=== PATIENT | female | born 1985 | race Caucasian/White ===

== ENCOUNTER → 2016-11-04 | Outpatient (CLI) | payer OTHER ==
[2016-09-24 12:31] VITALS: BP 116/77
== END | disposition home or self-care (01) ==
LOC: LAB 07:51
PROVIDERS: ATTEND Obstetrics & Gynecology
DX: O09.90 Supervision of high risk pregnancy, unspecified, unspecified trimester (principal)
CPT/HCPCS: 36415; 82947; 82950

== ENCOUNTER → 2016-12-19 | Outpatient (CLI) | payer OTHER ==
[2016-09-24 12:31] VITALS: BP 116/77
[2016-12-19 10:21] LABS: BASO # 0.1 x10^3/uL (0.0-0.2); BASO % 1 % (0-3); EOS % 1 % (0-3); HEMOGLOBIN 11.4 g/dL (12.0-15.5); LYMPH # 1.8 x10^3/uL (1.0-4.8); LYMPH % 13 % (24-48); MEAN CORPUSCULAR HEMOGLOBIN 28 pg (25-35); MEAN CORPUSCULAR HGB CONC 33 g/dL (31-37); MEAN CORPUSCULAR VOLUME 86 fL (79-100); MONO % 6 % (0-9); NEUT % 81 % (31-73); PLATELET COUNT 260 x10^3/uL (140-400); RED BLOOD COUNT 4.09 x10^6/uL (3.50-5.40); RED CELL DISTRIBUTION WIDTH 13.6 % (11.5-14.5); WHITE BLOOD COUNT 14.1 x10^3/uL (4.0-11.0)
[2016-12-19 10:44] LABS: ALBUMIN 2.7 g/dL (3.4-5.0); ALBUMIN/GLOBULIN RATIO 0.7 (1.0-1.7); CALCIUM 8.9 mg/dL (8.5-10.1); CREATININE 0.7 mg/dL (0.6-1.0); GFR 97.6; POTASSIUM 4.1 mmol/L (3.5-5.1); TOTAL BILIRUBIN 0.3 mg/dL (0.2-1.0); TOTAL PROTEIN 6.5 g/dL (6.4-8.2)
== END | disposition home or self-care (01) ==
LOC: LAB 10:03
PROVIDERS: ATTEND Obstetrics & Gynecology
DX: O09.90 Supervision of high risk pregnancy, unspecified, unspecified trimester (principal)
CPT/HCPCS: 36415; 80053; 85027

== ENCOUNTER 2016-12-29 19:44 | Inpatient (IN) | payer OTHER ==
[~2016-12-29] VITALS: Ht 162.6 cm; Wt 86.4 kg
[2016-12-29] MEDS ORDERED: IV RINGERS,LACTATED 1000ML 1,000 ML IV SCH (19:48)
[2016-12-29] MEDS ORDERED: IBUPROFEN 600 MG TABLET. PO PRN (20:00)
[2016-12-29] MEDS ORDERED: OXYTOCIN 30 UNIT/500 ML PREMIX 500 ML IV PRN (20:00)
[2016-12-29] MEDS ORDERED: TERBUTALINE 1 MG/ML VIAL. SQ PRN (20:00)
[2016-12-29] MEDS ORDERED: 0.9 % SODIUM CHLORIDE 10 ML DISP.SYRIN. IV PRN (20:00)
[2016-12-29] MEDS ORDERED: BUTORPHANOL 2 MG/ML VIAL. IV PRN (20:00)
[2016-12-29] MEDS ORDERED: DINOPROSTONE 10 MG SUPP.VAG VG ONE (20:00)
[2016-12-29] MEDS ORDERED: LIDOCAINE 1% PF 30 ML VIAL. INJ PRN (20:00)
[2016-12-29] MEDS ORDERED: CITRIC ACID/SODIUM CITRATE 30 ML SOLUTION. PO PRN (20:00)
[2016-12-29] MEDS ORDERED: ONDANSETRON PF 4 MG/2 ML VIAL. IV PRN (20:00)
[2016-12-29 20:33] VITALS: BP 133/74
[2016-12-29 22:22] LABS: BASO # 0.1 x10^3/uL (0.0-0.2); BASO % 1 % (0-3); EOS % 0 % (0-3); HEMATOCRIT 33.9 % (36.0-47.0); HEMOGLOBIN 10.9 g/dL (12.0-15.5); LYMPH # 1.9 x10^3/uL (1.0-4.8); LYMPH % 16 % (24-48); MEAN CORPUSCULAR HEMOGLOBIN 28 pg (25-35); MEAN CORPUSCULAR HGB CONC 32 g/dL (31-37); MEAN CORPUSCULAR VOLUME 86 fL (79-100); MONO % 7 % (0-9); NEUT % 77 % (31-73); PLATELET COUNT 242 x10^3/uL (140-400); RED BLOOD COUNT 3.92 x10^6/uL (3.50-5.40); WHITE BLOOD COUNT 12.4 x10^3/uL (4.0-11.0)
[2016-12-29 23:12] LABS: % EOS 2 % (0-5); PLT ESTIMATE ADEQUATE (ADEQUATE)
[2016-12-30] MEDS: IV RINGERS,LACTATED 1000ML 1,000 ML IV SCH ×3 (07:47→16:03)
--- NOTE | 2016-12-30 10:53 | PDOC1 ---
OB - History Hx of Present Care: Good Care Ultrasounds: Normal mid trimester US Obstetrical Complications: None Medical Complications: None Past Family/Social History * Past Medical, Surgical, Family and Obstetric Histories reviewed from chart. Rubella: Immune RPR/VDRL: Negative GBS Status: Negative HBsAG: Negative OB - Chief Complaint & HPI Date of Admission: Date of Admission: Dec 29, 2016 at 19:44 Chief Complaint/History : 1 Para: 0 EGA: 39 Reason for admission: induction of labor Indication for induction: maternal discomfort Admission Nurse Assessment Rev: Yes Problems: OB - Admission Exam Physical Exam Vitals: VS - Last 72 Hours, by Label Date Time Temp Pulse Resp B/P Pulse Ox O2 Delivery O2 Flow Rate FiO2 12/30/16 02:18 20 Room Air 12/29/16 20:33 98.3 111 20 133/74 Room Air 98.3 HEENT: Normal Heart: Regular Rate Lungs: Clear Abdomen: Soft Extremities: Edema Reflexes: Normal Cervical Dilatation: Fingertip Effacement: 25% Station: -3 Membranes: Intact Heart Rate: Normal Accelerations: Accelerations Present Contractions on Admission: None Intensity: Mild Text A: 39 wks IUP IOL secondary discomforts of P: Admit for cervidil induction, then pitocin augmentation. ANNITA NAVA Jr, MD Dec 30, 2016 10:53
[2016-12-30] MEDS ORDERED: ROPIVacaine 0.2% IN 0.9%NACL PF 40 MG/20 ML DISP.SYRIN. ONE ×3 (11:54→17:58)
[2016-12-30] MEDS ORDERED: L&D EPIDURAL CASSETTE 100 ML EP ONE (11:54)
[2016-12-30] MEDS ORDERED: EPHEDRINE PF IN SALINE 50 MG/5 ML DISP.SYRIN. IV PRN (13:00)
[2016-12-30] MEDS ORDERED: FENTANYL PF 100 MCG/2 ML VIAL. EPI ONE (13:00)
[2016-12-30] MEDS ORDERED: ROPIVacaine 0.2% PF 10 ML VIAL. EPI ONE (13:00)
[2016-12-30] MEDS ORDERED: ONDANSETRON PF 4 MG/2 ML VIAL. IV PRN (13:00)
[2016-12-30] MEDS ORDERED: L&D EPIDURAL CASSETTE 100 ML EP PRN (13:00)
[2016-12-30] MEDS ORDERED: NALOXONE 0.4 MG/ML VIAL. IV PRN (13:00)
[2016-12-30] MEDS ORDERED: FAMOTIDINE 20 MG TABLET. PO ONE (16:15)
[2016-12-30] MEDS ORDERED: L&D EPIDURAL CASSETTE 100 ML PUMP.RESVR. EP ONE (19:20)
--- NOTE | 2016-12-30 21:40 | PDOC ---
VAGINAL DELIVERY DATE DATE: 12/30/16 TIME: 21:38 : 1 Para: 1 EGA: 39 VAGINAL DELIVERY: VTX VACCUM ASSISTED: Yes NUMBER OF PULLS 3 NUMBER OF POP OFFS none MAXIMUM PRESSURE 600 mmhg PLACENTA: Spontaneous 12/11 SEX: Male WEIGHT Weight [ 3755 gm] Nuchal Cord: Yes, Times 1 Amniotic Fluid: Clear PAIN: Epidural EPISIOTOMY: No EXTENSION: Yes (2nd degree midline laceration) REPAIRED WITH 2-0 vicryl EBL 300 ml COMPLICATIONS none CONDITION pt. stable Signs of Intrauterine Infectio: None Shoulder Dystocia: No, Raulito Maneuver, Suprapubic Pressure Problems: ANNITA NAVA Jr, MD Dec 30, 2016 21:40
[2016-12-30] MEDS ORDERED: MAG HYDROX/ALUMINUM HYD/SIMETH 30 ML ORAL.SUSP PO PRN (21:45)
[2016-12-30] MEDS ORDERED: SIMETHICONE 80 MG TAB.CHEW PO PRN (21:45)
[2016-12-30] MEDS ORDERED: OXYTOCIN 30 UNIT/500 ML PREMIX 500 ML IV PRN (21:45)
[2016-12-30] MEDS ORDERED: BENZOCAINE 20% TOPICAL AEROSOL SPRAY 57GM CAN. TP PRN (21:45)
[2016-12-30] MEDS ORDERED: HYDROCORTISONE 1% TOPICAL OINTMENT 30GM TUBE. TP PRN (21:45)
[2016-12-30] MEDS ORDERED: DIPHENHYDRAMINE HCL 25 MG CAPSULE PO PRN (21:45)
[2016-12-30] MEDS ORDERED: DOCUSATE SODIUM 100 MG CAPSULE. PO PRN (21:45)
[2016-12-30] MEDS ORDERED: OXYCODONE/APAP 5/325 TABLET. PO PRN (21:45)
[2016-12-30] MEDS ORDERED: 0.9 % SODIUM CHLORIDE 10 ML DISP.SYRIN. IV PRN (21:45)
[2016-12-30] MEDS ORDERED: ACETAMINOPHEN 325 MG TABLET. PO PRN (21:45)
[2016-12-30] MEDS ORDERED: MMR per PROTOCOL. MC PRN (21:45)
[2016-12-30] MEDS ORDERED: ZOLPIDEM 5 MG TABLET. PO PRN (21:45)
[2016-12-30] MEDS ORDERED: PHENYLEPH/MINERAL OIL/PETROLAT RECTAL OINTMENT 28GM TUBE. RC PRN (21:45)
[2016-12-30] MEDS ORDERED: MAGNESIUM HYDROXIDE 2,400 MG/30 ML ORAL.SUSP. PO PRN (21:45)
[2016-12-31 00:20] VITALS: BP 121/80
[2016-12-31 01:29] VITALS: BP 95/40
[2016-12-31 05:07] VITALS: BP 99/69
[2016-12-31 05:14] LABS: BASO % 0 % (0-3); EOS % 0 % (0-3); HEMATOCRIT 28.9 % (36.0-47.0); HEMOGLOBIN 9.3 g/dL (12.0-15.5); LYMPH # 1.2 x10^3/uL (1.0-4.8); LYMPH % 5 % (24-48); MEAN CORPUSCULAR HEMOGLOBIN 28 pg (25-35); MEAN CORPUSCULAR HGB CONC 32 g/dL (31-37); MEAN CORPUSCULAR VOLUME 87 fL (79-100); MONO % 7 % (0-9); NEUT % 88 % (31-73); PLATELET COUNT 206 x10^3/uL (140-400); RED BLOOD COUNT 3.34 x10^6/uL (3.50-5.40); RED CELL DISTRIBUTION WIDTH 13.7 % (11.5-14.5); WHITE BLOOD COUNT 22.3 x10^3/uL (4.0-11.0)
[2016-12-31 05:55] LABS: PLT ESTIMATE ADEQUATE (ADEQUATE)
[2016-12-31] MEDS ORDERED: OXYTOCIN 30 UNIT/500 ML PREMIX 500 ML IV PRN ×2 (06:00→08:00)
[2016-12-31] MEDS ORDERED: FERROUS SULFATE ORAL 300 MG/5 ML SOLUTION. PO SCH (08:00)
[2016-12-31] MEDS: FERROUS SULFATE 325 MG TABLET PO SCH ×2 (08:27→21:05)
--- NOTE | 2016-12-31 08:59 | PDOC ---
OB Progress Note Date of Service 12/31/16 Time of Evaluation 0855 Notes PT. feeling well. Pain controlled. Breast feeding without difficulty. Lochia minimal. Lab Laboratory Tests Test 12/29/16 21:20 12/31/16 04:45 White Blood Count 12.4x10^3/uL (4.0-11.0) 22.3x10^3/uL (4.0-11.0) Red Blood Count 3.92x10^6/uL (3.50-5.40) 3.34x10^6/uL (3.50-5.40) Hemoglobin 10.9g/dL (12.0-15.5) 9.3g/dL (12.0-15.5) Hematocrit 33.9% (36.0-47.0) 28.9% (36.0-47.0) Mean Corpuscular Volume 86fL (79-100) 87fL (79-100) Mean Corpuscular Hemoglobin 28pg (25-35) 28pg (25-35) Mean Corpuscular Hemoglobin Concent 32g/dL (31-37) 32g/dL (31-37) Red Cell Distribution Width 14.0% (11.5-14.5) 13.7% (11.5-14.5) Platelet Count 242x10^3/uL (140-400) 206x10^3/uL (140-400) Neutrophils (%) (Auto) 77% (31-73) 88% (31-73) Lymphocytes (%) (Auto) 16% (24-48) 5% (24-48) Monocytes (%) (Auto) 7% (0-9) 7% (0-9) Eosinophils (%) (Auto) 0% (0-3) 0% (0-3) Basophils (%) (Auto) 1% (0-3) 0% (0-3) Neutrophils # (Auto) 9.6x10^3uL (1.8-7.7) 19.6x10^3uL (1.8-7.7) Lymphocytes # (Auto) 1.9x10^3/uL (1.0-4.8) 1.2x10^3/uL (1.0-4.8) Monocytes # (Auto) 0.8x10^3/uL (0.0-1.1) 1.5x10^3/uL (0.0-1.1) Eosinophils # (Auto) 0.0x10^3/uL (0.0-0.7) 0.0x10^3/uL (0.0-0.7) Basophils # (Auto) 0.1x10^3/uL (0.0-0.2) 0.0x10^3/uL (0.0-0.2) Segmented Neutrophils % 82% (35-66) 87% (35-66) Lymphocytes % 12% (24-48) 9% (24-48) Monocytes % 4% (0-10) 3% (0-10) Eosinophils % 2% (0-5) Platelet Estimate Adequate (ADEQUATE) Adequate (ADEQUATE) RPR Titer Additional Testing Non reactive (Non Reactive) Band Neutrophils % 1% (0-9) Laboratory Tests Test 12/31/16 04:45 White Blood Count 22.3x10^3/uL (4.0-11.0) Red Blood Count 3.34x10^6/uL (3.50-5.40) Hemoglobin 9.3g/dL (12.0-15.5) Hematocrit 28.9% (36.0-47.0) Mean Corpuscular Volume 87fL (79-100) Mean Corpuscular Hemoglobin 28pg (25-35) Mean Corpuscular Hemoglobin Concent 32g/dL (31-37) Red Cell Distribution Width 13.7% (11.5-14.5) Platelet Count 206x10^3/uL (140-400) Neutrophils (%) (Auto) 88% (31-73) Lymphocytes (%) (Auto) 5% (24-48) Monocytes (%) (Auto) 7% (0-9) Eosinophils (%) (Auto) 0% (0-3) Basophils (%) (Auto) 0% (0-3) Neutrophils # (Auto) 19.6x10^3uL (1.8-7.7) Lymphocytes # (Auto) 1.2x10^3/uL (1.0-4.8) Monocytes # (Auto) 1.5x10^3/uL (0.0-1.1) Eosinophils # (Auto) 0.0x10^3/uL (0.0-0.7) Basophils # (Auto) 0.0x10^3/uL (0.0-0.2) Segmented Neutrophils % 87% (35-66) Band Neutrophils % 1% (0-9) Lymphocytes % 9% (24-48) Monocytes % 3% (0-10) Platelet Estimate Adequate (ADEQUATE) Medications Current Medications Sodium Chloride 3 ml 3 ml QSHIFT PRN IV AFTER MEDS AND BLOOD DRAWS Last administered on 12/29/16 21:04; Start 12/29/16 at 20:00 Lactated Ringer's (Iv Lactated Ringers) 1,000 ml @ 125 mls/hr Q8H IV ; Start at 19:48; Stop 12/30/16 at 01:02; Status DC Butorphanol Tartrate (Stadol) 2 mg PRN Q1HR PRN IV Severe labor pain Last administered on 12/30/16 02:18; Start 12/29/16 at 20:00 Ondansetron HCl (Zofran) 4 mg PRN Q4HRS PRN IV NAUSEA/VOMITING; Start 12/29/16 at 20:00 Citric Acid/ Sodium Citrate (Bicitra) 30 ml 1X PRN PRN PO DYSPEPSIA; Start at 20:00; Stop 12/30/16 at 19:59; Status DC Terbutaline Sulfate (Brethine) 0.25 mg 1X PRN PRN SQ SEE COMMENTS; Start at 20:00; Stop 12/30/16 at 19:59; Status DC Lidocaine HCl 30 ml 30 ml 1X PRN PRN INJ SEE COMMENTS; Start 12/29/16 at 20:00 ; Stop 12/31/16 at 19:59 Oxytocin/Sodium Chloride 500 ml @ 0 mls/hr CONT PRN IV SEE I/O RECORD; Start at 06:00; Stop 12/31/16 at 06:00; Status DC Oxytocin/Sodium Chloride (Oxytocin Premix Infusion) 500 ml @ 0 mls/hr CONT PRN PRN IV Post delivery bleeding; Start 12/29/16 at 20:00 Ibuprofen (Motrin) 600 mg PRN Q6HRS PRN PO PAIN; Start 12/29/16 at 20:00 Dinoprostone 10 mg 10 mg 1X ONCE VG Last administered on 12/29/16 21:03; Start 12/29/16 at 20:00; Stop 12/29/16 at 20:10; Status DC Oxytocin/Sodium Chloride 500 ml @ 0 mls/hr CONT PRN IV SEE I/O RECORD Last administered on 12/30/16 11:00; Start 12/31/16 at 08:00 Lactated Ringer's 1,000 ml @ 125 mls/hr Q8H IV Last administered on 12/30/16 16:03; Start 12/30/16 at 08:00 Ropivacaine/ Fentanyl/NS (Aewrtqxa-Zsswi-HA 3 Mcg-0.1%) 100 ml @ As Directed STK-MED ONCE EP ; Start 12/30/16 at 11:54; Stop 12/30/16 at 11:55; Status DC Ropivacaine 40 mg STK-MED ONCE .ROUTE Last administered on 12/30/16 13:19; Start 12/30/16 at 11:54; Stop 12/30/16 at 11:55; Status DC Ephedrine Sulfate 10 mg PRN Q2MIN PRN IV IF SBP<90; Start 12/30/16 at 13:00 Naloxone HCl (Narcan) 0.04 mg PRN Q1MIN PRN IV SEE COMMENTS; Start 12/30/16 at 13:00 Fentanyl Citrate 100 mcg 100 mcg 1X ONCE EPI Last administered on 12/30/16 13 :20; Start 12/30/16 at 13:00; Stop 12/30/16 at 13:01; Status DC Ropivacaine/ Fentanyl/NS (Opvjzgjg-Vbfri-CS 3 Mcg-0.1%) 100 ml @ 14 mls/hr CONT PRN EP PAIN Last administered on 12/30/16 13:21; Start 12/30/16 at 13:00 Ondansetron HCl (Zofran) 4 mg PRN Q6HRS PRN IV NAUSEA/VOMITING; Start 12/30/16 at 13:00 Ropivacaine (Naropin 0.2%) 20 ml 1X ONCE EPI ; Start 12/30/16 at 13:00; Stop at 13:01; Status DC Ropivacaine 40 mg STK-MED ONCE .ROUTE ; Start 12/30/16 at 13:18; Stop 12/30/16 at 13:19; Status DC Famotidine (Pepcid) 20 mg 1X ONCE PO Last administered on 12/30/16 15:59; Start 12/30/16 at 16:15; Stop 12/30/16 at 16:16; Status DC Ropivacaine 40 mg STK-MED ONCE .ROUTE Last administered on 12/30/16 18:05; Start 12/30/16 at 17:58; Stop 12/30/16 at 17:59; Status DC Sodium Chloride 10 ml 10 ml QSHIFT PRN IV AFTER MEDS AND BLOOD DRAWS; Start at 21:45 Oxytocin/Sodium Chloride (Oxytocin Premix Infusion) 500 ml @ 62.5 mls/hr CONT PRN IV SEE I/O RECORD; Start 12/30/16 at 21:45; Stop 12/31/16 at 05:44; Status DC Acetaminophen (Tylenol) 650 mg PRN Q6HRS PRN PO MILD PAIN / TEMP Last administered on 12/31/16 08:27; Start 12/30/16 at 21:45 Ibuprofen (Motrin) 800 mg PRN Q8HRS PRN PO INFLAMMATION/PAIN PREVENTION; Start 12/30/16 at 21:45 Docusate Sodium (Colace) 100 mg PRN BID PRN PO CONSTIPATION; Start 12/30/16 at 21:45 Magnesium Hydroxide (Milk Of Magnesia) 2,400 mg PRN DAILY PRN PO CONSTIPATION; Start 12/30/16 at 21:45 Al Hydroxide/Mg Hydroxide (Mylanta Plus Xs) 30 ml PRN Q4HRS PRN PO HEARTBURN / GAS; Start 12/30/16 at 21:45 Simethicone (Gas-X) 80 mg PRN AFTMEALHC PRN PO GAS / BLOATING; Start 12/30/16 at 21:45 Diphenhydramine HCl (Benadryl) 25 mg PRN Q6HRS PRN PO ITCHING; Start 12/30/16 at 21:45 Benzocaine (Americaine) 1 spray PRN QID PRN TP TOPICAL PAIN; Start 12/30/16 at 21:45 Phenyleph/Shark Oil/Min Oil/Petrol (Preparation H) 1 octavia PRN QID PRN RC RECTAL PAIN; Start 12/30/16 at 21:45 Hydrocortisone (Cortaid) 1 octavia PRN QID PRN TP PERINEAL PAIN; Start 12/30/16 at 21:45 Ferrous Sulfate (Feosol) 325 mg BIDWMEALS PO Last administered on 12/31/16t 08: 27; Start 12/31/16 at 08:00 Zolpidem Tartrate (Ambien) 5 mg PRN QHS PRN PO INSOMNIA, MAY REPEAT X1; Start 12/30/16 at 21:45 Info (Do NOT chart on this placeholder) 1 ea 1X PRN PRN MC SEE COMMENTS; Start 12/30/16 at 21:45 Info (Do NOT chart on this placeholder) 1 ea 1X PRN PRN MC SEE COMMENTS; Start 12/30/16 at 21:45 Oxycodone/ Acetaminophen (Percocet 5/325) 2 tab PRN Q4HRS PRN PO MODERATE PAIN , SEVERE PAIN; Start 12/30/16 at 21:45 Ferrous Sulfate 300 mg BIDWMEALS PO ; Start 12/31/16 at 08:00 Ropivacaine/ Fentanyl/NS (Cvhgjpuq-Rulwz-IC 3 Mcg-0.1%) 100 ml STK-MED ONCE EP ; Start 12/30/16 at 19:20; Stop 12/31/16 at 08:34; Status DC Exam Abd: soft, non tender, fundus firm Assessment PPD#1 s/p Plan of Care: Continue current Tx, ANNITA Gibson Jr, MD Dec 31, 2016 08:59
[2016-12-31 12:15] VITALS: BP 118/82
[2016-12-31 17:10] VITALS: BP 91/53
[2016-12-31 20:50] VITALS: BP 116/82
[2016-12-31] MEDS: IBUPROFEN 800 MG TABLET. PO PRN (21:05)
[2017-01-01 05:00] VITALS: BP 83/48
[2017-01-01] MEDS: FERROUS SULFATE 325 MG TABLET PO SCH (08:06)
[2017-01-01] MEDS: IBUPROFEN 800 MG TABLET. PO PRN (08:06)
[2017-01-01 11:12] VITALS: BP 128/79
--- NOTE | 2017-01-01 13:37 | PDOC ---
OB Progress Note Date of Service 01/01/17 Time of Evaluation 1330 Notes Pt. feeling well. No complaints. Lab Laboratory Tests Test 12/31/16 04:45 White Blood Count 22.3x10^3/uL (4.0-11.0) Red Blood Count 3.34x10^6/uL (3.50-5.40) Hemoglobin 9.3g/dL (12.0-15.5) Hematocrit 28.9% (36.0-47.0) Mean Corpuscular Volume 87fL (79-100) Mean Corpuscular Hemoglobin 28pg (25-35) Mean Corpuscular Hemoglobin Concent 32g/dL (31-37) Red Cell Distribution Width 13.7% (11.5-14.5) Platelet Count 206x10^3/uL (140-400) Neutrophils (%) (Auto) 88% (31-73) Lymphocytes (%) (Auto) 5% (24-48) Monocytes (%) (Auto) 7% (0-9) Eosinophils (%) (Auto) 0% (0-3) Basophils (%) (Auto) 0% (0-3) Neutrophils # (Auto) 19.6x10^3uL (1.8-7.7) Lymphocytes # (Auto) 1.2x10^3/uL (1.0-4.8) Monocytes # (Auto) 1.5x10^3/uL (0.0-1.1) Eosinophils # (Auto) 0.0x10^3/uL (0.0-0.7) Basophils # (Auto) 0.0x10^3/uL (0.0-0.2) Segmented Neutrophils % 87% (35-66) Band Neutrophils % 1% (0-9) Lymphocytes % 9% (24-48) Monocytes % 3% (0-10) Platelet Estimate Adequate (ADEQUATE) Medications Current Medications Sodium Chloride 3 ml 3 ml QSHIFT PRN IV AFTER MEDS AND BLOOD DRAWS Last administered on 12/29/16t 21:04; Start 12/29/16 at 20:00; Stop 12/31/16 at 20:12 ; Status DC Lactated Ringer's (Iv Lactated Ringers) 1,000 ml @ 125 mls/hr Q8H IV ; Start at 19:48; Stop 12/30/16 at 01:02; Status DC Butorphanol Tartrate (Stadol) 2 mg PRN Q1HR PRN IV Severe labor pain Last administered on 12/30/16 02:18; Start 12/29/16 at 20:00; Stop 12/31/16 at 20:11 ; Status DC Ondansetron HCl (Zofran) 4 mg PRN Q4HRS PRN IV NAUSEA/VOMITING; Start 12/29/16 at 20:00; Stop 12/31/16 at 20:11; Status DC Citric Acid/ Sodium Citrate (Bicitra) 30 ml 1X PRN PRN PO DYSPEPSIA; Start at 20:00; Stop 12/30/16 at 19:59; Status DC Terbutaline Sulfate (Brethine) 0.25 mg 1X PRN PRN SQ SEE COMMENTS; Start at 20:00; Stop 12/30/16 at 19:59; Status DC Lidocaine HCl 30 ml 30 ml 1X PRN PRN INJ SEE COMMENTS; Start 12/29/16 at 20:00 ; Stop 12/31/16 at 19:59; Status DC Oxytocin/Sodium Chloride 500 ml @ 0 mls/hr CONT PRN IV SEE I/O RECORD; Start at 06:00; Stop 12/31/16 at 06:00; Status DC Oxytocin/Sodium Chloride (Oxytocin Premix Infusion) 500 ml @ 0 mls/hr CONT PRN PRN IV Post delivery bleeding; Start 12/29/16 at 20:00; Stop 12/31/16 at 20:11; Status DC Ibuprofen (Motrin) 600 mg PRN Q6HRS PRN PO PAIN; Start 12/29/16 at 20:00; Stop 12/31/16 at 20:11; Status DC Dinoprostone 10 mg 10 mg 1X ONCE VG Last administered on 12/29/16 21:03; Start 12/29/16 at 20:00; Stop 12/29/16 at 20:10; Status DC Oxytocin/Sodium Chloride 500 ml @ 0 mls/hr CONT PRN IV SEE I/O RECORD Last administered on 12/30/16 11:00; Start 12/31/16 at 08:00 Lactated Ringer's 1,000 ml @ 125 mls/hr Q8H IV Last administered on 12/30/16 16:03; Start 12/30/16 at 08:00; Stop 12/31/16 at 20:11; Status DC Ropivacaine/ Fentanyl/NS (Pjhfijdf-Jbfnw-YD 3 Mcg-0.1%) 100 ml @ As Directed STK-MED ONCE EP ; Start 12/30/16 at 11:54; Stop 12/30/16 at 11:55; Status DC Ropivacaine 40 mg STK-MED ONCE .ROUTE Last administered on 12/30/16 13:19; Start 12/30/16 at 11:54; Stop 12/30/16 at 11:55; Status DC Ephedrine Sulfate 10 mg PRN Q2MIN PRN IV IF SBP<90; Start 12/30/16 at 13:00; Stop 12/31/16 at 20:11; Status DC Naloxone HCl (Narcan) 0.04 mg PRN Q1MIN PRN IV SEE COMMENTS; Start 12/30/16 at 13:00; Stop 12/31/16 at 20:11; Status DC Fentanyl Citrate 100 mcg 100 mcg 1X ONCE EPI Last administered on 12/30/16 13 :20; Start 12/30/16 at 13:00; Stop 12/30/16 at 13:01; Status DC Ropivacaine/ Fentanyl/NS (Tiaolgmv-Ghdjm-WI 3 Mcg-0.1%) 100 ml @ 14 mls/hr CONT PRN EP PAIN Last administered on 12/30/16 13:21; Start 12/30/16 at 13:00 ; Stop 12/31/16 at 20:11; Status DC Ondansetron HCl (Zofran) 4 mg PRN Q6HRS PRN IV NAUSEA/VOMITING; Start 12/30/16 at 13:00 Ropivacaine (Naropin 0.2%) 20 ml 1X ONCE EPI ; Start 12/30/16 at 13:00; Stop at 13:01; Status DC Ropivacaine 40 mg STK-MED ONCE .ROUTE ; Start 12/30/16 at 13:18; Stop 12/30/16 at 13:19; Status DC Famotidine (Pepcid) 20 mg 1X ONCE PO Last administered on 12/30/16 15:59; Start 12/30/16 at 16:15; Stop 12/30/16 at 16:16; Status DC Ropivacaine 40 mg STK-MED ONCE .ROUTE Last administered on 12/30/16 18:05; Start 12/30/16 at 17:58; Stop 12/30/16 at 17:59; Status DC Sodium Chloride 10 ml 10 ml QSHIFT PRN IV AFTER MEDS AND BLOOD DRAWS; Start at 21:45 Oxytocin/Sodium Chloride (Oxytocin Premix Infusion) 500 ml @ 62.5 mls/hr CONT PRN IV SEE I/O RECORD; Start 12/30/16 at 21:45; Stop 12/31/16 at 05:44; Status DC Acetaminophen (Tylenol) 650 mg PRN Q6HRS PRN PO MILD PAIN / TEMP Last administered on 12/31/16 08:27; Start 12/30/16 at 21:45 Ibuprofen (Motrin) 800 mg PRN Q8HRS PRN PO INFLAMMATION/PAIN PREVENTION Last administered on 01/01/17 08:06; Start 12/30/16 at 21:45 Docusate Sodium (Colace) 100 mg PRN BID PRN PO CONSTIPATION Last administered on 12/31/16 21:05; Start 12/30/16 at 21:45 Magnesium Hydroxide (Milk Of Magnesia) 2,400 mg PRN DAILY PRN PO CONSTIPATION; Start 12/30/16 at 21:45 Al Hydroxide/Mg Hydroxide (Mylanta Plus Xs) 30 ml PRN Q4HRS PRN PO HEARTBURN / GAS; Start 12/30/16 at 21:45 Simethicone (Gas-X) 80 mg PRN AFTMEALHC PRN PO GAS / BLOATING; Start 12/30/16 at 21:45 Diphenhydramine HCl (Benadryl) 25 mg PRN Q6HRS PRN PO ITCHING; Start 12/30/16 at 21:45 Benzocaine (Americaine) 1 spray PRN QID PRN TP TOPICAL PAIN; Start 12/30/16 at 21:45 Phenyleph/Shark Oil/Min Oil/Petrol (Preparation H) 1 octavia PRN QID PRN RC RECTAL PAIN; Start 12/30/16 at 21:45 Hydrocortisone (Cortaid) 1 octavia PRN QID PRN TP PERINEAL PAIN; Start 12/30/16 at 21:45 Ferrous Sulfate (Feosol) 325 mg BIDWMEALS PO Last administered on 01/01/17t 08: 06; Start 12/31/16 at 08:00 Zolpidem Tartrate (Ambien) 5 mg PRN QHS PRN PO INSOMNIA, MAY REPEAT X1; Start 12/30/16 at 21:45 Info (Do NOT chart on this placeholder) 1 ea 1X PRN PRN MC SEE COMMENTS; Start 12/30/16 at 21:45; Stop 12/31/16 at 20:11; Status DC Info (Do NOT chart on this placeholder) 1 ea 1X PRN PRN MC SEE COMMENTS; Start 12/30/16 at 21:45; Stop 12/31/16 at 20:11; Status DC Oxycodone/ Acetaminophen (Percocet 5/325) 2 tab PRN Q4HRS PRN PO MODERATE PAIN , SEVERE PAIN; Start 12/30/16 at 21:45 Ferrous Sulfate 300 mg BIDWMEALS PO ; Start 12/31/16 at 08:00; Stop 12/31/16 at 20:11; Status DC Ropivacaine/ Fentanyl/NS (Fnzbgqkp-Ctzgn-QQ 3 Mcg-0.1%) 100 ml STK-MED ONCE EP ; Start 12/30/16 at 19:20; Stop 12/31/16 at 08:34; Status DC Exam Abd: soft, non tender, fundus firm Assessment PPD#2 s/p Plan of Care: See new orders (D/c home.) ANNITA NAVA Jr, MD Jan 01, 2017 13:37
--- NOTE | 2017-01-01 13:37 | DISCH ---
DISCHARGE INSTRUCTIONS Condition on Discharge Condition on Discharge: Stable Activity After Discharge Activity Instructions for Disc: Activity as tolerated Lifting Instructions after Dis: No heavy lifting Driving Instructions after Dis: Do not drive today Diet after Discharge Diet after Discharge: Regular Contacting the DREthel after DC Call your doctor for: Concerns you may have Follow-Up Follow up with: Dr. Nielson in 6 weeks. ANNITA NIELSON Jr, MD Jan 01, 2017 13:37
[2017-01-01] MEDS ORDERED: IBUP-1060 PO (13:38)
[2017-01-01 13:45] VITALS: BP 112/67
== END 2017-01-01 14:35 | disposition home or self-care (01) | DRG 775 ==
LOC: 3 SO LND 19:44 → 3 NORTH 12-31 00:20
PROVIDERS: ADMIT Obstetrics & Gynecology; ATTEND Obstetrics & Gynecology
PROC: 10D07Z6 Extraction of Products of Conception, Vacuum, Via Natural or Artificial Opening (ICD-10-PCS; principal; 2016-12-30)
PROC: 0KQM0ZZ Repair Perineum Muscle, Open Approach (ICD-10-PCS; 2016-12-30)
PROC: 3E0S3CZ (ICD-10-PCS; 2016-12-30)
PROC: 00HU33Z Insertion of Infusion Device into Spinal Canal, Percutaneous Approach (ICD-10-PCS; 2016-12-30)
DX: O69.81X0 Labor and delivery complicated by cord around neck, without compression, not applicable or unspecified (principal); O70.1 Second degree perineal laceration during delivery; Z3A.39 39 weeks gestation of pregnancy; Z37.0 Single live birth
CPT/HCPCS: 36415; 85007; 85027; 86593; 86850; 86900; 86901; J2590; J2795; J3010; J7120

== ENCOUNTER → 2018-10-26 | Outpatient (CLI) | payer OTHER ==
[~2018-10-26] MED LIST: IBUP-1060 PO
--- NOTE | 2018-10-26 15:57 | RAD ---
Clinical indications: Size/date discrepancy. COMPARISON: None available for this at this facility. Findings: A single intrauterine fetus is seen in cephalic position. heart rate is 162 beats per minute. BPD is 4.81 cm which equals 20 weeks 4 days. HC is 18.23 cm which equals 20 weeks 4 days. AC is 15.66 cm which equals 20 weeks 6 days. FL is 3.03 cm which equals 19 weeks 3 days. Average gestational age by ultrasound is 20 weeks 3 days +/- +/- 12 days with an EDC of March 12, 2019. Estimated weight is 0 lbs and 12 oz. A four-chamber heart and three-vessel cord are identified. stomach and urinary bladder are identified. kidneys are unremarkable. Cord insertion site is unremarkable. The intracranial structures and spine are morphologically normal in appearance. The ventricular trigone measurement is less than 10 mm. Cisterna magna measurement is 4.1 mm. Four extremities are identified. A normal amount of amniotic fluid is evident. Cervical length is 5.5 cm. A grade 0 anterior placenta is seen. No placenta previa and no placenta abruptio is identified. The maternal ovaries are not visualized. Impression: Single IUP with gestational age of 20 weeks 3 days. Electronically signed by: Antoni Mahoney MD (10/26/2018 3:52 PM) [id number]
== END | disposition home or self-care (01) ==
LOC: US 10:51
PROVIDERS: ATTEND Obstetrics & Gynecology
DX: O26.842 Uterine size-date discrepancy, second trimester (principal); Z3A.20 20 weeks gestation of pregnancy
CPT/HCPCS: 76805

== ENCOUNTER → 2018-12-23 | Outpatient (CLI) | payer OTHER | END | disposition home or self-care (01) | LOC: LAB 07:58 | PROVIDERS: ATTEND Obstetrics & Gynecology | DX: O09.93 Supervision of high risk pregnancy, unspecified, third trimester (principal); Z3A.28 28 weeks gestation of pregnancy | CPT/HCPCS: 36415; 82947; 82950 ==

== ENCOUNTER 2019-03-04 19:11 | Inpatient (IN) | payer OTHER ==
[~2019-03-04] VITALS: Ht 162.6 cm; Wt 87.1 kg
[2019-03-04] MEDS ORDERED: ONDANSETRON PF 4 MG/2 ML VIAL. IV PRN (19:15)
[2019-03-04] MEDS ORDERED: NALBUPHINE 10 MG/ML AMPUL. IV PRN (19:15)
[2019-03-04] MEDS ORDERED: ACETAMINOPHEN 325 MG TABLET. PO PRN (19:15)
[2019-03-04] MEDS ORDERED: IBUPROFEN 400 MG TABLET. PO PRN (19:15)
[2019-03-04] MEDS ORDERED: 0.9 % SODIUM CHLORIDE 10 ML DISP.SYRIN. IV PRN (19:15)
[2019-03-04] MEDS ORDERED: MAG HYDROX/ALUMINUM HYD/SIMETH 30 ML ORAL.SUSP PO PRN (19:15)
[2019-03-04] MEDS ORDERED: BUTORPHANOL 2 MG/ML VIAL. IV PRN (19:15)
[2019-03-04] MEDS ORDERED: LIDOCAINE 1% PF 30 ML VIAL. INJ PRN (19:15)
[2019-03-04] MEDS ORDERED: TERBUTALINE 1 MG/ML VIAL. SQ PRN (19:15)
[2019-03-04] MEDS ORDERED: OXYTOCIN 30 UNIT/500 ML PREMIX 500 ML IV PRN ×2 (19:15)
[2019-03-04 19:57] VITALS: BP 129/69
[2019-03-04] MEDS ORDERED: DINOPROSTONE 10 MG SUPP.VAG VG ONE (20:00)
[2019-03-04 20:18] LABS: BASO % 0 % (0-3); EOS % 0 % (0-3); HEMATOCRIT 32.4 % (36.0-47.0); HEMOGLOBIN 10.5 g/dL (12.0-15.5); LYMPH # 1.5 x10^3/uL (1.0-4.8); LYMPH % 16 % (24-48); MEAN CORPUSCULAR HEMOGLOBIN 26 pg (25-35); MEAN CORPUSCULAR HGB CONC 32 g/dL (31-37); MEAN CORPUSCULAR VOLUME 80 fL (79-100); MONO # 0.4 x10^3/uL (0.0-1.1); MONO % 5 % (0-9); NEUT # 7.2 x10^3uL (1.8-7.7); NEUT % 79 % (31-73); PLATELET COUNT 260 x10^3/uL (140-400); RED BLOOD COUNT 4.07 x10^6/uL (3.50-5.40); RED CELL DISTRIBUTION WIDTH 14.9 % (11.5-14.5); WHITE BLOOD COUNT 9.2 x10^3/uL (4.0-11.0)
[2019-03-04] MEDS ORDERED: diphenhydrAMINE HCL 25 MG CAPSULE PO PRN (20:30)
[2019-03-04 23:47] LABS: BILIRUBIN,URINE NEGATIVE (NEG); CLARITY,URINE CLEAR; COLOR,URINE YELLOW; NITRITE,URINE NEGATIVE (NEG); PROTEIN,URINE NEGATIVE (NEG-TRACE); UROBILINOGEN,URINE 0.2 mg/dL (0.2 mg/dL)
[2019-03-04 23:56] LABS: BACTERIA,URINE 0 /HPF (0-FEW); RBC,URINE 0 /HPF (0-2); SQUAMOUS EPITHELIAL CELL,UR MOD /LPF; WBC,URINE OCC /HPF (0-4)
[2019-03-05] MEDS: IV RINGERS,LACTATED 1000ML 1,000 ML IV SCH ×2 (02:24→06:38)
--- NOTE | 2019-03-05 08:37 | PDOC1 ---
OB - History Hx of Present Care: Good Care Ultrasounds: Normal mid trimester US Obstetrical Complications: Gestational Diabetes Medical Complications: None Past Family/Social History * Past Medical, Surgical, Family and Obstetric Histories reviewed from chart. Rubella: Immune RPR/VDRL: Negative GBS Status: Negative HBsAG: Negative OB - Chief Complaint & HPI Date of Admission: Date of Admission: March 04, 2019 at 19:11 Chief Complaint/History : 2 Para: 1 EGA: 39 Reason for admission: induction of labor (GDM A1) Indication for induction: other (GDM A1) Admission Nurse Assessment Rev: Yes OB - Admission Exam Physical Exam Vitals: VS - Last 72 Hours, by Label Date Time Temp Pulse Resp B/P (MAP) Pulse Ox O2 Delivery O2 Flow Rate FiO2 03/04/19 19:57 98.9 127 16 129/69 (89) 97 Room Air 98.9 HEENT: Normal Heart: Regular Rate Lungs: Clear Abdomen: Gravid, Non tender, Soft Extremities: Edema Reflexes: Normal Cervical Dilatation: 2cm Effacement: 50% Station: -3 Membranes: Intact Heart Rate: Normal Accelerations: Accelerations Present Decelerations: No decelerations Contractions on Admission: None Text A: 39 wks IUP GDM A1 P: Admit IOL cervidil, then pitocin. ANNITA NAVA Jr, MD March 05, 2019 08:37
[2019-03-05] MEDS ORDERED: IV RINGERS,LACTATED 1000ML 1,000 ML IV SCH (10:31)
[2019-03-05] MEDS ORDERED: L&D EPIDURAL SYRINGE 50 ML EPID PRN (10:33)
[2019-03-05] MEDS ORDERED: ePHEDrine PF IN SALINE 50 MG/10 ML SYRINGE. IV PRN (10:45)
[2019-03-05] MEDS ORDERED: ROPIVacaine 0.2% IN 0.9%NACL PF 40 MG/20 ML DISP.SYRIN. EPID PRN (10:45)
[2019-03-05] MEDS ORDERED: fentaNYL PF VIAL 100 MCG/2 ML VIAL EPI PRN (10:45)
[2019-03-05] MEDS ORDERED: NALOXONE 0.4 MG/ML VIAL. IV PRN (10:45)
[2019-03-05] MEDS ORDERED: ONDANSETRON PF 4 MG/2 ML VIAL. IV PRN (10:45)
[2019-03-05] MEDS ORDERED: LIDOCAINE 2% PF 5 ML VIAL. ONE (11:52)
--- NOTE | 2019-03-05 13:47 | PDOC ---
VAGINAL DELIVERY DATE DATE: 03/05/19 TIME: 13:46 : 2 Para: 2 EGA: 39 VAGINAL DELIVERY: VTX VACCUM ASSISTED: No PLACENTA: Spontaneous 8/9 SEX: Female WEIGHT Weight [3740 gm ] Nuchal Cord: No Amniotic Fluid: Clear PAIN: Epidural EPISIOTOMY: No EXTENSION: Yes (2nd degree midline laceration) REPAIRED WITH 2-0 vicryl EBL 300 ml COMPLICATIONS none Signs of Intrauterine Infectio: None Shoulder Dystocia: No ANNITA NAVA Jr, MD March 05, 2019 13:47
[2019-03-05] MEDS ORDERED: MAG HYDROX/ALUMINUM HYD/SIMETH 30 ML ORAL.SUSP PO PRN (14:00)
[2019-03-05] MEDS ORDERED: HYDROCORTISONE 1% TOPICAL OINTMENT 30GM TUBE. TP PRN (14:00)
[2019-03-05] MEDS ORDERED: ZOLPIDEM 5 MG TABLET. PO PRN (14:00)
[2019-03-05] MEDS ORDERED: ACETAMINOPHEN 325 MG TABLET. PO PRN (14:00)
[2019-03-05] MEDS ORDERED: BENZOCAINE 20% TOPICAL AEROSOL SPRAY 57GM CAN. TP PRN (14:00)
[2019-03-05] MEDS ORDERED: PHENYLEPH/MINERAL OIL/PETROLAT RECTAL OINTMENT 57GM TUBE. RC PRN (14:00)
[2019-03-05] MEDS ORDERED: MMR per PROTOCOL. MC PRN (14:00)
[2019-03-05] MEDS ORDERED: diphenhydrAMINE HCL 25 MG CAPSULE PO PRN (14:00)
[2019-03-05] MEDS ORDERED: MAGNESIUM HYDROXIDE 2,400 MG/30 ML ORAL.SUSP. PO PRN (14:00)
[2019-03-05] MEDS ORDERED: SIMETHICONE 80 MG TAB.CHEW PO PRN (14:00)
[2019-03-05] MEDS ORDERED: OXYTOCIN 30 UNIT/500 ML PREMIX 500 ML IV PRN (14:00)
[2019-03-05] MEDS ORDERED: oxyCODONE/APAP 5/325 1 TAB TABLET PO PRN (14:00)
[2019-03-05] MEDS ORDERED: 0.9 % SODIUM CHLORIDE 10 ML DISP.SYRIN. IV PRN (14:00)
[2019-03-05 17:00] VITALS: BP 126/72
[2019-03-05] MEDS ORDERED: FERROUS SULFATE 325 MG TABLET. PO SCH (17:00)
[2019-03-05] MEDS: DOCUSATE SODIUM 100 MG CAPSULE. PO PRN (19:21)
[2019-03-05] MEDS: IBUPROFEN 400 MG TABLET. PO PRN (19:21)
[2019-03-05 22:00] VITALS: BP 118/79
[2019-03-06 01:58] VITALS: BP 118/79
[2019-03-06] MEDS: DOCUSATE SODIUM 100 MG CAPSULE. PO PRN (05:04)
[2019-03-06] MEDS: IBUPROFEN 400 MG TABLET. PO PRN (05:04)
[2019-03-06 05:08] LABS: BASO # 0.1 x10^3/uL (0.0-0.2); BASO % 1 % (0-3); EOS # 0.1 x10^3/uL (0.0-0.7); EOS % 1 % (0-3); HEMATOCRIT 29.6 % (36.0-47.0); HEMOGLOBIN 9.5 g/dL (12.0-15.5); LYMPH # 2.1 x10^3/uL (1.0-4.8); LYMPH % 15 % (24-48); MEAN CORPUSCULAR HEMOGLOBIN 26 pg (25-35); MEAN CORPUSCULAR HGB CONC 32 g/dL (31-37); MEAN CORPUSCULAR VOLUME 80 fL (79-100); MONO # 0.8 x10^3/uL (0.0-1.1); MONO % 5 % (0-9); NEUT # 11.4 x10^3uL (1.8-7.7); NEUT % 79 % (31-73); PLATELET COUNT 224 x10^3/uL (140-400); WHITE BLOOD COUNT 14.5 x10^3/uL (4.0-11.0)
[2019-03-06 06:00] VITALS: BP 114/80
[2019-03-06 11:20] VITALS: BP 117/77
[2019-03-06] MEDS ORDERED: IBUP-1060 PO (14:49)
--- NOTE | 2019-03-06 14:50 | DISCH ---
DISCHARGE INSTRUCTIONS Condition on Discharge Condition on Discharge: Stable Activity After Discharge Activity Instructions for Disc: Activity as tolerated Lifting Instructions after Dis: No heavy lifting Driving Instructions after Dis: Do not drive today Diet after Discharge Diet after Discharge: Regular Contacting the DREthel after DC Call your doctor for: Concerns you may have Follow-Up Follow up with: Dr. Nielson in 6 wks ANNITA NIELSON Jr, MD Mar 06, 2019 14:50
[2019-03-06 15:30] VITALS: BP 104/77
== END 2019-03-06 16:45 | disposition home or self-care (01) | DRG 807 ==
LOC: 3 SO LND 19:11
PROVIDERS: ADMIT Obstetrics & Gynecology; ATTEND Obstetrics & Gynecology
PROC: 10E0XZZ Delivery of Products of Conception, External Approach (ICD-10-PCS; principal; 2019-03-05)
PROC: 0KQM0ZZ Repair Perineum Muscle, Open Approach (ICD-10-PCS; 2019-03-05)
PROC: 00HU33Z Insertion of Infusion Device into Spinal Canal, Percutaneous Approach (ICD-10-PCS; 2019-03-05)
PROC: 3E0R3BZ Introduction of Anesthetic Agent into Spinal Canal, Percutaneous Approach (ICD-10-PCS; 2019-03-05)
DX: O24.420 Gestational diabetes mellitus in childbirth, diet controlled (principal); Z37.0 Single live birth; Z3A.39 39 weeks gestation of pregnancy; O70.1 Second degree perineal laceration during delivery
CPT/HCPCS: 36415; 81001; 85025; 86592; 86850; 86900; 86901; J2001; J2590; J3010; J7120; Q0163